=== PATIENT | female | born 1990 | race Caucasian/White ===

== ENCOUNTER 2021-10-12 09:02 | Emergency (ER) | payer BC, SELFPAY ==
--- NOTE | ~2021-10-12 | XR_ITS ---
EXAMINATION: CHEST. SOFT TISSUE NECK. CLINICAL INFORMATION: SOB COMPARISON: None TECHNIQUE: Chest one view. Soft tissue neck 2 views FINDINGS: Chest: The lungs are well-expanded and clear of acute pneumonic process. The heart size and pulmonary vascularity is normal. No gross bony abnormality. Soft tissue neck: There is mild straightening of cervical lordosis. The vertebral heights, alignment and disc heights are normal. The airway is widely patent. No soft tissue mass seen. The prevertebral soft tissues are normal. No visible acute fracture, dislocation or subluxation seen. XR/XR chest 1V IMPRESSION: Unremarkable soft tissue neck. Unremarkable chest exam.
--- NOTE | ~2021-10-12 | XR_ITS ---
EXAMINATION: CHEST. SOFT TISSUE NECK. CLINICAL INFORMATION: SOB COMPARISON: None TECHNIQUE: Chest one view. Soft tissue neck 2 views FINDINGS: Chest: The lungs are well-expanded and clear of acute pneumonic process. The heart size and pulmonary vascularity is normal. No gross bony abnormality. Soft tissue neck: There is mild straightening of cervical lordosis. The vertebral heights, alignment and disc heights are normal. The airway is widely patent. No soft tissue mass seen. The prevertebral soft tissues are normal. No visible acute fracture, dislocation or subluxation seen. XR/XR soft tissue neck IMPRESSION: Unremarkable soft tissue neck. Unremarkable chest exam.
[2021-10-12 09:21] VITALS: BP 130/81; PULSE 96; RESP 6; TEMP 36.6; O2SAT 99; BMI 25.7
--- NOTE | 2021-10-12 09:56 | ED_ITS ---
HPI - Allergic Reaction General Chief complaint: Allergic Reaction Stated complaint: allergic reaction - multiple complaints Time Seen by Provider: 10/12/21 09:42 Source: patient Mode of arrival: ambulatory History of Present Illness HPI narrative: 30-year-old female with no significant past medical history presenting to the ED complaining of throat tightness and difficulty swallowing since last night. Admits to mild SOB. Reports had allergic reaction beginning on Tuesday worsened Tuesday & was seen at urgent care on Tuesday given IM steroid, p.o. steroids and antihistamine with improvement/resolution. Denies known allergen, new medications/exposures. Reports symptoms on Tuesday were hives. Denies hives at present, CP, oral swelling MD complaint: allergic reaction Related Data Previous Rx's Medication Instructions Recorded aluminum-mag hydroxide-simethicone 5 ml PO 5XD PRN #30 ml 10/12/21 200 mg-200 mg-20 mg/5 mL oral susp (Maalox Advanced) famotidine 20 mg tablet (Pepcid) 20 mg PO DAILY #14 tab 10/12/21 Allergies Allergy/AdvReac Type Severity Reaction Status Date / Time amoxicillin Allergy Hives Verified 10/12/21 09:20 Sulfa (Sulfonamide Allergy Hives Verified 10/12/21 09:20 Antibiotics) Review of Systems Review of Systems: Constitutional:No Fever, No Chills, No Malaise ENT/Mouth: No Ear Pain, No Nasal Congestion, No Hoarseness, + throat tightness, + Swallowing Difficulty Eyes: No Eye Pain, No Swelling, No Redness Cardiovascular: No Chest Pain, + SOB, No Palpitations Respiratory: No Cough, No Dyspnea Gastrointestinal: No Nausea, No Vomiting, No Abdominal pain Genitourinary:No Flank Pain, No Urinary Flow Changes Musculoskeletal: No joint pain, No Myalgias Skin: No Skin Lesions, No rash Neuro: No Weakness, No Numbness, No Headache Yes all other systems are reviewed and are negative PMFSH Social History Social History Advance Directives: No Advance Directives Information Provided: No Patient : No Physical Exam Vital Signs: Vital Signs: Last Vital Signs Temp 98 F 10/12/21 09:21 Pulse 96 10/12/21 09:21 Resp 6 L 10/12/21 09:21 BP 130/81 10/12/21 09:21 Pulse Ox 99 10/12/21 09:21 Body Mass Index 25.7 Const: General: cooperative, healthy appearing, no acute distress and anxious Orientation/consciousness: patient oriented x3 Limitations: no limitations HENMT: Head: Yes normal to inspection and Yes normocephalic Ears: hearing grossly normal bilaterally General nose exam: Normal external nose present and Normal nares present Face and sinus: Yes normal facial exam Mouth: Normal oral and palatal mucosa present, lip normal, tongue normal and no drooling Throat: Yes posterior oropharynx normal, Yes tonsils normal, Yes uvula midline, No abnormal tonsil, No peritonsillar mass and No uvular edema Eyes: General: appearance normal, both eyes and all related structures EOM: EOMs intact bilaterally Neck: Neck: Yes normal visual inspection, Yes no lymphadenopathy, Yes supple, No anterior neck swelling and No midline deformity Resp: Effort & Inspection: normal respiratory effort, no stridor and not tachypneic Auscultation: clear to auscultation bilaterally, no crackles, no rales, no rhonchi and no wheezes Cardio: Rate: regular rate Heart sounds: S1 normal heart sound present and S2 normal heart sound present GI: Inspection: Yes normal to inspection Palpation (GI): Soft to palpation, nontender, no guarding and not rigid Skin: Rashes: no rashes Wounds: no wounds Neuro: General: patient oriented x3 Gait exam (Neuro): Normal gait present Extrem: General: Yes normal to inspection Course Course Course Narrative: -1051--XR soft tissue neck/XR chest 1V IMPRESSION: Unremarkable soft tissue neck. Unremarkable chest exam. -patient tolerated p.o. in the ED without difficulty -rapid strep negative. Results discussed with patient including worrisome signs and symptoms and strict return precautions. Recommended continuation of previously prescribed medications, she verbalized understanding & feels safe for discharge home at this time MDM - Allergic Reaction MDM Narrative Medical decision making narrative: 30-year-old female with no significant past medical history presenting to the ED complaining of throat tightness and difficulty swallowing since last night. On exam vital signs stable, anxious, NAD/nontoxic, talking in complete sentences, no respiratory distress, lungs CTA, no appreciable intraoral swelling/Or neck swelling. Concern for anxiety reaction vs allergic reaction. Plan: CXR, neck x-ray, PO Pepcid and Viscous lidocaine Medical Records Attestation: I reviewed the patient's medical records. Lab Data Attestation: I reviewed the patient's lab results. Labs: Lab Results 10/12/21 Range/Units 10:00 S. pyogenes GrpA LALITA Negative (Negative) Discharge Plan Discharge Clinical Impression: Throat tightness Patient Disposition: Home, Self-Care Instructions: Pharyngitis (ED) Additional Instructions: The x-ray of your neck and chest were unremarkable. You tested negative for strep throat Continue previously prescribed medications from urgent care Maalox and Pepcid will help with acid reduction/chest burning Please follow-up with an design printing machine set up operator for allergy testing If symptoms persist/recur or worsen you have shortness of breath, oral swelling, you are unable to eat drink please return to the emergency department Prescriptions: New famotidine [Pepcid] 20 mg tablet 20 mg PO DAILY Qty: 14 RF: 0 alum-mag hydroxide-simeth [Maalox Advanced] 200-200-20 mg/5 mL suspension 5 ml PO 5XD PRN (Reason: dyspepsia) Qty: 30 RF: 0 Referrals: Jimmie Baker DO [Physician] - 2 days
[2021-10-12] MEDS: Famotidine 20 MG TABLET PO (10:01)
[2021-10-12] MEDS: Lidocaine HCl Viscous 2 % 15 ML SOLUTION MUCOUS MEM (10:01)
[2021-10-12 10:13] LABS: Strep A Nucleic Acid Negative (Negative)
--- NOTE | 2021-10-12 10:54 | PC.NURSE ---
pt denies that the medication has helped with her throat. provider aware.
[2021-10-12] MEDS: Magnesium Hydrox/Alum Hydrox 30 ML ORAL.SUSP PO (11:09)
== END 2021-10-12 11:31 | disposition home or self-care (01) ==
PROVIDERS: Physician Assistant; Emergency Provider Emergency Medicine; PCP Internal Medicine
DX: R07.0 Pain in throat (principal); R06.02 Shortness of breath; Z79.899 Other long term (current) drug therapy; Z20.822 Contact with and (suspected) exposure to COVID-19
CPT/HCPCS: 36415; 70360; 71045; 87651; 99283